=== PATIENT | female | born 1960 | race Caucasian/White ===

== ENCOUNTER → 2016-12-20 | Outpatient (CLI) | payer MEDICARE, BC ==
[~2016-12-20] MED LIST: AMBIEN PO; B6100 MG PO; CERTAGEN PO; EPITOL PO; ESTRACE PO; FLEXERIL10 MG PO; ORUDIS75 M1 DOB; SEROQUEL PO; SYNTHROID PO; TEGRETOL PO; VICODIN 5/500 T1 TAB PO
--- NOTE | ~2016-12-20 | MY11 ---
[facility] A Service of [facility] & [facility] RADIOLOGY TEXT RESULTS PATIENT: RHYS OWEN LOCATION: [facility] : 58 UNIT #: [id number] AGE: [address]: Khanh Castro MD SEX: F ORDER DR: [id number] [facility] [address] [place], [place] [address] [id number] O MR#: [id number] Acc #: [id number] NAME: RHYS OWEN : 1960 SEX: F STUDY DATE/TIME: 12/20/2016 10:03 UNIT: [facility] ROOM: STUDY DESCRIPTION: MY Mammogram Screening Dig Bogdan Attending Physician: Khanh Castro Jr., M.D. Referring Physician: Khanh Parekh M.D. Ordering Physician: Khanh Castro Jr., M.D. Primary Care Physician: Khanh Castro Jr., M.D. MEDICAL IMAGING REPORT This report is preliminary unless electronic signature is present EXAM Digital screening mammogram 12/20/2016. [facility] [place] [facility] HISTORY 56-year-old woman positive family history, aunt. Annual screen. COMPARISON: Mammograms date to 02/27/2006 with most recent screening comparison 12/25/2015. FINDINGS Digital imaging of each breast was completed utilizing a two-view examination of each breast in craniocaudal and mediolateral-oblique projections. Review and interpretation of digital mammograms include a second review in conjunction with FDA-approved CAD device. There is a normal parenchymal presentation bilaterally consistent with the patient's age. There are no breast masses imaged and no parenchymal asymmetry is visualized. There are no suspicious microcalcifications and I see no focal architectural disturbance. IMPRESSION Negative screening digital mammogram. One-year followup recommended. Patients over the age of 40 are entered into a reminder system with target due date for the next mammogram. A result letter will also be sent to the patient. BIRADS: 1 Negative ADDENDUM: Nerve stimulator power pack images on the left MLO projection. The parenchyma remains fatty replaced. Dictated by... Killian Herndon M.D. [facility] A Service of [facility] & [facility] RADIOLOGY TEXT RESULTS PATIENT: RHYS OWEN LOCATION: [facility] #: [id number] : 58 UNIT #: [id number] AGE: [address]: Khanh Castro MD SEX: F ORDER DR: THIS IS AN ELECTRONICALLY VERIFIED REPORT Killian Herndon M.D. at 12/20/2016 1:27 PM MANUELA/anahy TD: 12/20/2016 12:43 JOB #: [id number] MEDICAL IMAGING REPORT Page 1 of 1 COPY
--- NOTE | ~2016-12-20 | BD1 ---
[facility] A Service of [facility] RADIOLOGY TEXT RESULTS PATIENT: RHYS OWEN LOCATION: [facility] : 58 UNIT #: [id number] AGE: [address]: Khnah Castro MD SEX: F ORDER DR: [id number] [place] [id number] [facility]. [place], [place] [address] [id number] O MR#: [id number] Acc #: [id number] NAME: RHYS OWEN. : 1960 SEX: F STUDY DATE/TIME: 12/20/2016 9:42 UNIT: [facility] ROOM: STUDY DESCRIPTION: BD Dexa Bone Dens 1+ Site Attending Physician: Khanh Castro Jr., M.D. Referring Physician: Khanh Parekh M.D. Ordering Physician: Khanh Castro Jr., M.D. Primary Care Physician: Khanh Castro Jr., M.D. MEDICAL IMAGING REPORT This report is preliminary unless electronic signature is present REVISED REPORT SEE ADDENDUM EXAM DEXA scan HISTORY Postmenopausal screening for osteoporosis. COMPARISON DXA scan 09/12/2014, 07/30/2012 FINDINGS Bone density was assessed utilizing a logic bone densitometer. Total bone density within the lumbar spine was calculated at 0.799 g/cm2 with a T-score -2.3. Total bone density within the proximal right femur was calculated at 0.562 g/cm2 a T-score -3.1. When compared to the patient's studies from 2014 there has been about a 5% decrease in bone density within the lumbar spine which is statistically significant. There has also been a statistically significant decrease in bone density within the left proximal femur measuring about 15%. IMPRESSION Bone density within the proximal left femur is greater than 2.5 standard deviations below the mean as compatible with the World Health Organization criteria for osteoporosis. When compared to the patient's 2014 study there has been a statistically significant decrease in bone density, both in the lumbar spine and the proximal right femur. Dictated by... [facility] A Service of [facility] RADIOLOGY TEXT RESULTS PATIENT: RHYS OWEN LOCATION: [facility] : 58 UNIT #: [id number] AGE: [address]: Khanh Castro MD SEX: F ORDER DR: Armin Richards M.D. THIS IS AN ELECTRONICALLY VERIFIED REPORT Armin Richards M.D. at 12/21/2016 1:58 PM Akanksha TD: 12/20/2016 14:34 JOB #: [id number] ADDENDUM The measurements submitted were from the right femur so in the impression it should read: Bone density within the proximal right femur is greater than 2.5 standard deviations below the mean. Dictated by... Armin Richards M.D. THIS IS AN ELECTRONICALLY VERIFIED REPORT Armin Richards M.D. at 01/12/2017 10:06 PM Chloe TD: 01/12/2017 05:59 JOB #: [id number] CC: Lorenzo/invision Please Delete MEDICAL IMAGING REPORT Page 1 of 1 COPY
== END | disposition home or self-care (01) ==
LOC: CWCC 09:03
DX: Z12.31 Encounter for screening mammogram for malignant neoplasm of breast (principal); Z80.3 Family history of malignant neoplasm of breast; M81.0 Age-related osteoporosis without current pathological fracture; Z78.0 Asymptomatic menopausal state; Z97.8 Presence of other specified devices
CPT/HCPCS: 77080; G0202